=== PATIENT | male | born 1980 | race African-American/Black ===

== ENCOUNTER 2016-06-30 08:15 | Emergency (ER) | payer SELFPAY ==
[2016-06-30 08:26] VITALS: BP 179/101; BMI 32.5
--- NOTE | 2016-06-30 08:42 | DR.GENAD ---
HPI - PCP Primary Care Physician: NFD - Complaint/Symptoms Chief Complaint Doctors Comments: Patient admits coughing up a small amout of mucus with blood. Denies recent illness. Admits smoking six cigarettes per day approximately. Denies recent infection. PMN negative Chief Complaint:: PT STATES " I WOKE THIS AM AND WENT TO COUGH AND I COUGHED UP BLOOD AND I AM HAVING TROUBLE BREATHING AND NO PAIN" Self Treatment fo Chief Complaint: PT APPEARS TO BE IN NO DISTRESS... - Source History Provided: Patient - Mode of Arrival Mode of Arrival: Ambulatory - Timing Onset of Chief Complaint: 06/30/16 PMH - PMH Past Medical History: Yes Past Medical History: Hypertension Past Surgical History: No - Family History History of Family Medical Conditions: Yes Family Medical History: Diabetes Mellitus, Hypertension - Social History Does patient currently use any type of tobacco product: Yes Have you used tobacco products in the last 12 months: Yes Type of Tobacco Use: Cigars How many years tobacco product used: 15 Does any household member use tobacco: No Alcohol Use: None Do you use any recreational Drugs:: No Lives With: Family Lives Where: Home - infectious screening In the last 2 months have you had wt loss of >10#?: NO Have you had fever, night sweats or hemotysis?: No Have you traveled outside the country in the last 6 months?: No Isolation: Standard ROS - Review of Systems Constitutional: No Symptoms Reported Eyes: No Symptoms Reported ENTM: No Symptoms Reported Respiratoy: Dry Cough Cardiovascular: No Symptoms Reported Gastrointestinal/Abdominal: No Symptoms Reported Genitourinary: No Symptoms Reported Neurological: No Symptoms Reported Musculoskeletal: No Symptoms Reported Integumentary: No Symptoms Reported Hematologic/Lymphatic: No Symptoms Reported Endocrine: No Symptoms Reported Psychiatric: No Symptoms Reported All Other Systems: Reviewed and Negative PE - Vital Signs Vitals: Temperature 99.9 F Pulse Rate 96 Respiratory Rate 20 Blood Pressure 179/101 O2 Sat by Pulse Oximetry 96 - General Limitations: No Limitations General Appearance: Alert, In No Apparent Distress - Head Head Exam: Normal Inspection, Atraumatic - Eyes Eye exam: Normal Appearance, PERRL, EOMI - ENT ENT Exam: Normal Exam External Ear Exam: Normal External Inspection TM/Canal Exam: Bilateral Normal Nose Exam: Other (turbinates boggy left with partial occlusion of nostril) Mouth Exam: Normal Inspection Throat Exam: Normal Inspection - Neck Neck Exam: Normal Inspection - Chest Chest Inspection: Normal Inspection - Respiratory Respiratory Exam: Normal Lung Sounds Bilat Respiratory Exam: Bilateral Clear to Auscultation - Cardiovascular Cardiovascular Exam: Regular Rate - Abdominal Exam Abdominal Exam: Normal Inspection Abdominal Tenderness: negative: RUQ, RLQ, LUQ, LLQ, Epigastrium, Suprapubic, Diffuse, Mild, Moderate, Severe, Other - Extremities Extremities Exam: Normal Inspection, Full ROM - Back Back Exam: Normal Inspection - Neurologic Neurological Exam: Alert, Oriented X3, CN II-XII Intact - Psychiatric Psychiatric Exam: Normal Affect, Normal Mood - Skin Skin Exam: Warm, Dry, Intact Course - Reevaluation 1st: Unchanged ROR - XRAY XRAY Interpreted by: Radiologist (Chest: no acute cardioipulmonary disease) - Diagnosis Discharge Problem: Rhinitis, allergic Qualifiers: Allergic rhinitis trigger: pollen Allergic rhinitis seasonality: unspecified seasonality Qualified Code(s): J30.1 - Allergic rhinitis due to pollen - Discharge Plan Condition: Stable - Follow ups/Referrals Follow ups/Referrals: NFD,None [Primary Care Provider] - 3 days - Instructions
--- NOTE | 2016-06-30 09:35 | RAD ---
HISTORY: Spitting up blood. Difficulty breathing Study: Single-view chest, done portably Comparison: No priors Findings: The trachea is midline. The cardiac silhouette is unremarkable. The lungs are clear without focal infiltrate or effusion. The bony thorax is unremarkable. IMPRESSION: 1. No acute cardiopulmonary disease. Reported By:
== END 2016-06-30 09:50 | disposition home or self-care (01) ==
LOC: ER 08:15
DX: J30.1 Allergic rhinitis due to pollen (principal)
CPT/HCPCS: 71010; 99282

== ENCOUNTER 2016-07-31 14:51 | Emergency (ER) | payer SELFPAY ==
[2016-07-31 14:55] VITALS: BMI 31.8
[2016-07-31] MEDS ORDERED: CATAPRES TAB 0.1 MG PO ONE (15:08)
[2016-07-31] MEDS ORDERED: CATAPRES TAB 0.1 MG ONE (15:09)
--- NOTE | 2016-07-31 16:29 | DR.GENAD ---
HPI - PCP Primary Care Physician: NFD - Complaint/Symptoms Chief Complaint:: PT. C/O LEFT LOWER BACK PAIN THAT RADIATES DOWN LEFT LEG. 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 - Source History Provided: Patient - Mode of Arrival Mode of Arrival: Ambulatory - Timing Onset of Chief Complaint: 07/30/16 PMH - PMH Past Medical History: Yes Past Medical History: Hypertension Past Surgical History: No Surgical History: No History - Family History History of Family Medical Conditions: Yes Family Medical History: Diabetes Mellitus, Hypertension - Social History Does patient currently use any type of tobacco product: Yes Have you used tobacco products in the last 12 months: Yes Type of Tobacco Use: Cigarettes Does any household member use tobacco: No Alcohol Use: None Do you use any recreational Drugs:: No Lives With: Spouse Lives Where: Home - infectious screening In the last 2 months have you had wt loss of >10#?: NO Have you had fever, night sweats or hemotysis?: No Have you traveled outside the country in the last 6 months?: No Isolation: Standard ROS - Review of Systems Eyes: No Symptoms Reported ENTM: No Symptoms Reported Respiratoy: No Symptoms Reported Cardiovascular: No Symptoms Reported Gastrointestinal/Abdominal: No Symptoms Reported Genitourinary: No Symptoms Reported Neurological: No Symptoms Reported Musculoskeletal: Leg (decreased left leg raising) Integumentary: No Symptoms Reported Hematologic/Lymphatic: No Symptoms Reported Endocrine: No Symptoms Reported Psychiatric: No Symptoms Reported All Other Systems: Reviewed and Negative PE - Vital Signs Vitals: Temperature 98.4 F Pulse Rate 105 Respiratory Rate 17 Blood Pressure [Left Arm] 175/100 Blood Pressure 198/110 O2 Sat by Pulse Oximetry 97 - General Limitations: No Limitations General Appearance: Alert, In No Apparent Distress - Head Head Exam: Normal Inspection, Atraumatic - Eyes Eye exam: Normal Appearance, PERRL, EOMI - ENT ENT Exam: Normal Exam External Ear Exam: Normal External Inspection TM/Canal Exam: Bilateral Normal Nose Exam: Normal Nose Exam Mouth Exam: Normal Inspection Throat Exam: Normal Inspection - Neck Neck Exam: Normal Inspection, Full ROM - Chest Chest Inspection: Normal Inspection - Respiratory Respiratory Exam: Normal Lung Sounds Bilat Respiratory Exam: Bilateral Clear to Auscultation - Cardiovascular Cardiovascular Exam: Regular Rate, Normal Rhythm - Abdominal Exam Abdominal Exam: Normal Inspection Abdominal Tenderness: negative: RUQ, RLQ, LUQ, LLQ, Epigastrium, Suprapubic, Diffuse, Mild, Moderate, Severe, Other - Extremities Extremities Exam: Other (straight leg raising to 30 degrees left and 60 left) - Back Back Exam: Normal Inspection - Neurologic Neurological Exam: Alert, Oriented X3, CN II-XII Intact - Psychiatric Psychiatric Exam: Normal Affect, Normal Mood - Skin Skin Exam: Warm, Dry, Intact ROR - XRAY XRAY Interpreted by: Radiologist (Lumbar spine: The lumbar spine alignment is normal. The vertebral body heights and intervertebral disc spaces are normally maintained. There is milm facet DJD at L4-5 and L5-S1. The SI joints appear grossly normal.) - Diagnosis Discharge Problem: DJD (degenerative joint disease), lumbosacral - Discharge Plan Condition: Stable - Follow ups/Referrals Follow ups/Referrals: NFD,None [Primary Care Provider] - 3 days - Instructions
--- NOTE | 2016-07-31 17:14 | RAD ---
Lumbar spine, three views Indication: Left-sided back pain with radiation down left lower extremity. Findings: The lumbar spine alignment is normal. The vertebral body heights and intervertebral disc s paces are normally maintained. There is mild facet DJD at L4-5 and L5-S1. The SI joints appear grossly normal. Impression: Mild facet arthropathy of the lower lumbar spine. No evidence of acute lumbar spine injury. Reported By:
[2016-07-31] MEDS ORDERED: TORADOL 60 MG VIAL IM ONE (17:17)
[2016-07-31] MEDS ORDERED: TORADOL 60 MG VIAL ONE (17:19)
[2016-07-31 17:25] VITALS: BP 175/100
== END 2016-07-31 17:50 | disposition home or self-care (01) ==
LOC: ER 14:59
DX: M51.36 Other intervertebral disc degeneration, lumbar region (principal)
CPT/HCPCS: 72100; 96372; 99282; J1885

== ENCOUNTER 2016-11-03 21:27 | Emergency (ER) | payer SELFPAY ==
[2016-11-03 21:45] VITALS: BP 162/117; BMI 33.2
--- NOTE | 2016-11-03 22:07 | DR.GENAD ---
HPI - PCP Primary Care Physician: NFD - Complaint/Symptoms Chief Complaint:: "I have been out of my blood pressure meds for about a month now. I just moved here and have not found a doctor yet. I started hurting in my head bad from it today. I also have a cyst on my butt that has been hurting really bad. It is sometimes even difficult to walk from it." - Source History Provided: Patient - Mode of Arrival Mode of Arrival: Ambulatory - Timing Onset of Chief Complaint: 10/31/16 PMH - PMH Past Medical History: Yes Past Medical History: Hypertension Past Surgical History: No Surgical History: No History - Family History History of Family Medical Conditions: Yes Family Medical History: Diabetes Mellitus, Hypertension - Social History Does patient currently use any type of tobacco product: Yes Have you used tobacco products in the last 12 months: Yes Type of Tobacco Use: Cigarettes Does any household member use tobacco: Yes Alcohol Use: None Do you use any recreational Drugs:: No Lives With: Family Lives Where: Home - infectious screening In the last 2 months have you had wt loss of >10#?: NO Have you had fever, night sweats or hemotysis?: No Have you traveled outside the country in the last 6 months?: No Isolation: Standard ROS - Review of Systems Eyes: No Symptoms Reported ENTM: No Symptoms Reported Respiratoy: No Symptoms Reported Cardiovascular: No Symptoms Reported Gastrointestinal/Abdominal: No Symptoms Reported Genitourinary: No Symptoms Reported Neurological: No Symptoms Reported Musculoskeletal: Other (right mid gluteal tender mass) Integumentary: No Symptoms Reported Hematologic/Lymphatic: No Symptoms Reported Endocrine: No Symptoms Reported Psychiatric: No Symptoms Reported All Other Systems: Reviewed and Negative PE - Vital Signs Vitals: Temperature 98.7 F Pulse Rate 109 Respiratory Rate 18 Blood Pressure [Left Arm] 175/100 Blood Pressure 162/117 O2 Sat by Pulse Oximetry 97 - General Limitations: No Limitations General Appearance: Alert, In No Apparent Distress - Head Head Exam: Normal Inspection, Atraumatic - Eyes Eye exam: Normal Appearance, PERRL, EOMI - ENT ENT Exam: Normal Exam External Ear Exam: Normal External Inspection TM/Canal Exam: Bilateral Normal Nose Exam: Normal Nose Exam Mouth Exam: Normal Inspection Throat Exam: Normal Inspection - Neck Neck Exam: Normal Inspection, Full ROM - Chest Chest Inspection: Symmetric Chest Wall Rise - Respiratory Respiratory Exam: Normal Lung Sounds Bilat Respiratory Exam: Bilateral Clear to Auscultation - Cardiovascular Cardiovascular Exam: Regular Rate, Normal Rhythm - Abdominal Exam Abdominal Exam: Normal Inspection Abdominal Tenderness: negative: RUQ, RLQ, LUQ, LLQ, Epigastrium, Suprapubic, Diffuse, Mild, Moderate, Severe, Other - Extremities Extremities Exam: Normal Inspection - Back Back Exam: Normal Inspection - Neurologic Neurological Exam: Alert, Oriented X3, CN II-XII Intact - Psychiatric Psychiatric Exam: Normal Affect - Skin Skin Exam: Warm, Dry, Intact, Other (furuncle right superior gluteus arnoldo) - Diagnosis Discharge Problem: Furuncle of buttock, Elevated BP without diagnosis of hypertension - Discharge Plan Condition: Stable - Follow ups/Referrals Follow ups/Referrals: NFD,None [Primary Care Provider] - 3 days - Instructions
== END 2016-11-03 22:35 | disposition home or self-care (01) ==
LOC: ER 21:27
DX: R03.0 Elevated blood-pressure reading, without diagnosis of hypertension (principal); L02.32 Furuncle of buttock
CPT/HCPCS: 99281; 99282

== ENCOUNTER 2016-11-05 12:36 | Emergency (ER) | payer SELFPAY ==
[2016-11-05 12:44] VITALS: BP 183/107; BMI 33.2
--- NOTE | 2016-11-05 12:56 | DR.GENAD ---
HPI - PCP Primary Care Physician: NFD - Complaint/Symptoms Chief Complaint:: PT C/O ALLERGIC REACTION TO A NEW SOAP (HE THINKS) THAT HE USED THIS AM. PT STATES HE STARTED USING A NEW SOAP THIS AM AND AFTER THAT HE STARTED ITCHING ALL OVER HIS BODY. PT STATES HE TOOK A BENADRYL AND THE ITCHING HAS SLOWED DOWN, BUT THE HEAD OF HIS PENIS IS SWOLLEN AND WILL NOT GO DOWN. PT STATES IT WAS PERFECTLY FINE THIS AM UNTIL AFTER THIS ISSUE STARTED. - Nurses notes reviewed Nurses Notes Review: Yes - Source History Provided: Patient - Mode of Arrival Mode of Arrival: Ambulatory - Timing Onset of Chief Complaint: 11/05/16 Came on: Gradually - Duration Duration: Constant Duration: Hours - Location Location: generalized - Severity Severity: Moderate - Modifying Factors Worsens:: new soap - Associated Signs and Symptoms Associated Signs and Symptoms: itchy - Other History Other History: started yesterday for furuncle PMH - PMH Past Medical History: Yes Past Medical History: Hypertension Past Surgical History: No Surgical History: No History - Family History History of Family Medical Conditions: Yes Family Medical History: Diabetes Mellitus, Hypertension - Social History Does patient currently use any type of tobacco product: Yes Have you used tobacco products in the last 12 months: Yes Type of Tobacco Use: Cigarettes Does any household member use tobacco: Yes Alcohol Use: None Do you use any recreational Drugs:: No Lives With: Family Lives Where: Home - infectious screening In the last 2 months have you had wt loss of >10#?: NO Have you had fever, night sweats or hemotysis?: No Have you traveled outside the country in the last 6 months?: No Isolation: Standard PE - Vital Signs Vitals: Temperature 98.2 F Pulse Rate 83 Respiratory Rate 20 Blood Pressure [Left Arm] 175/100 Blood Pressure 183/107 O2 Sat by Pulse Oximetry 97 - General Limitations: No Limitations General Appearance: Alert, In No Apparent Distress - Head Head Exam: Normal Inspection - Eyes Eye exam: Normal Appearance, EOMI. negative: Scleral Icterus, Conjunctival Injection - ENT ENT Exam: Normal Exam External Ear Exam: Normal External Inspection Mouth Exam: Normal Inspection Throat Exam: Normal Inspection - Neck Neck Exam: Normal Inspection, Full ROM, Trachea Midline - Chest Chest Inspection: Normal Inspection - Respiratory Respiratory Exam: negative: Accessory Muscle Use, Respiratory Distress - Cardiovascular Cardiovascular Exam: Regular Rate - Abdominal Exam Abdominal Exam: Normal Inspection - Extremities Extremities Exam: Normal Inspection - Neurologic Neurological Exam: Alert, Oriented X3, CN II-XII Intact - Psychiatric Psychiatric Exam: Normal Mood - Skin Skin Exam: Intact, Other (swelling around head of penis) - Diagnosis Discharge Problem: Allergic drug rash due to anti-infective agent - Discharge Plan Condition: Stable Prescriptions: Clindamycin HCl 150 mg PO Q6H #40 cap - Follow ups/Referrals Follow ups/Referrals: NFD,None [Primary Care Provider] - 3 days - Instructions
[2016-11-05] MEDS ORDERED: DECADRON INJ IM ONE (12:57)
[2016-11-05] MEDS ORDERED: BENADRYL CAP/TAB 25 MG PO ONE ×2 (12:57→13:13)
[2016-11-05] MEDS ORDERED: CATAPRES TAB 0.2 MG PO ONE (12:59)
[2016-11-05] MEDS ORDERED: CATAPRES TAB 0.2 MG ONE (13:13)
[2016-11-05] MEDS ORDERED: DECADRON INJ ONE (13:13)
== END 2016-11-05 13:51 | disposition home or self-care (01) ==
LOC: ER 12:52
DX: Z88.3 Allergy status to other anti-infective agents (principal)
CPT/HCPCS: 96372; 99282; J1100

== ENCOUNTER 2016-11-10 17:33 | Emergency (ER) | payer SELFPAY ==
[2016-11-10 17:41] VITALS: BP 159/100; BMI 32.1
--- NOTE | 2016-11-10 18:37 | DR.GENAD ---
HPI - PCP Primary Care Physician: none - Complaint/Symptoms Chief Complaint Doctors Comments: Patient admits that he has not taken his antibiotics since given Rx on 11/05/16. He was to take clindamycin 150mg q6h. Chief Complaint:: pt has folliculitis on his buttom it has got worse since he was seen on 11/03/16 - Source History Provided: Patient - Mode of Arrival Mode of Arrival: Ambulatory - Timing Onset of Chief Complaint: 11/03/16 PMH - PMH Past Medical History: Yes Past Medical History: Hypertension Past Surgical History: No Surgical History: No History - Family History History of Family Medical Conditions: Yes Family Medical History: Diabetes Mellitus, Hypertension - Social History Does patient currently use any type of tobacco product: Yes Have you used tobacco products in the last 12 months: Yes Type of Tobacco Use: Cigarettes How many years tobacco product used: 22 Does any household member use tobacco: No Alcohol Use: None Do you use any recreational Drugs:: No Lives With: Family Lives Where: Home - infectious screening In the last 2 months have you had wt loss of >10#?: NO Have you had fever, night sweats or hemotysis?: No Have you traveled outside the country in the last 6 months?: No Isolation: Standard ROS - Review of Systems Eyes: No Symptoms Reported ENTM: No Symptoms Reported Respiratoy: No Symptoms Reported Cardiovascular: No Symptoms Reported Gastrointestinal/Abdominal: No Symptoms Reported Genitourinary: No Symptoms Reported Neurological: No Symptoms Reported Musculoskeletal: No Symptoms Reported Integumentary: No Symptoms Reported Hematologic/Lymphatic: No Symptoms Reported Endocrine: No Symptoms Reported Psychiatric: No Symptoms Reported All Other Systems: Reviewed and Negative PE - Vital Signs Vitals: Temperature 98 F Pulse Rate 100 Respiratory Rate 20 Blood Pressure [Left Arm] 175/100 Blood Pressure 159/100 O2 Sat by Pulse Oximetry 100 - General General Appearance: Alert, In No Apparent Distress - Head Head Exam: Normal Inspection, Atraumatic - Eyes Eye exam: Normal Appearance, PERRL, EOMI - ENT ENT Exam: Normal Exam External Ear Exam: Normal External Inspection TM/Canal Exam: Bilateral Normal Nose Exam: Normal Nose Exam Mouth Exam: Normal Inspection Throat Exam: Normal Inspection - Neck Neck Exam: Normal Inspection, Full ROM - Chest Chest Inspection: Normal Inspection - Respiratory Respiratory Exam: Normal Lung Sounds Bilat Respiratory Exam: Bilateral Clear to Auscultation - Cardiovascular Cardiovascular Exam: Regular Rate, Normal Rhythm - Abdominal Exam Abdominal Exam: Normal Inspection Abdominal Tenderness: negative: RUQ, RLQ, LUQ, LLQ, Epigastrium, Suprapubic, Diffuse, Mild, Moderate, Severe, Other - Extremities Extremities Exam: Normal Inspection, Full ROM - Back Back Exam: Normal Inspection - Neurologic Neurological Exam: Alert, Oriented X3, CN II-XII Intact - Psychiatric Psychiatric Exam: Normal Affect - Skin Skin Exam: Warm, Dry, Other (right gluteal cheek superiorally a crusting lesion nonerythematous scabbed, states it hurts.) - Diagnosis Discharge Problem: Carbuncle and furuncle of buttock - Discharge Plan Condition: Stable - Follow ups/Referrals Follow ups/Referrals: NFD,None [Primary Care Provider] - 3 days - Instructions
== END 2016-11-10 19:02 | disposition home or self-care (01) ==
LOC: ER 17:33
DX: L02.33 Carbuncle of buttock (principal); L02.32 Furuncle of buttock
CPT/HCPCS: 99281; 99282

== ENCOUNTER 2016-11-13 02:59 | Emergency (ER) | payer SELFPAY ==
[2016-11-13 03:06] VITALS: BP 148/80; BMI 33.2
--- NOTE | 2016-11-13 03:43 | DR.GENAD ---
HPI - PCP Primary Care Physician: NFD - Complaint/Symptoms Chief Complaint Doctors Comments: The carbuncle has ruptured in three sites on right gluteal area. There is still a large firm core palpaed Chief Complaint:: PT STATES" I WAS TOLD TOO COME BACK WHEN IT RUPTURED SO I'M HERE. IT HURTS SO BAD I CAN'T STAND IT" - Source History Provided: Patient - Mode of Arrival Mode of Arrival: Ambulatory - Timing Onset of Chief Complaint: 11/05/16 PMH - PMH Past Medical History: Yes Past Medical History: Hypertension Past Surgical History: No Surgical History: No History - Family History History of Family Medical Conditions: Yes Family Medical History: Diabetes Mellitus, Hypertension - Social History Does any household member use tobacco: Yes Alcohol Use: None Do you use any recreational Drugs:: No Lives With: Family Lives Where: Home - infectious screening In the last 2 months have you had wt loss of >10#?: NO Have you had fever, night sweats or hemotysis?: No Have you traveled outside the country in the last 6 months?: No Isolation: Standard ROS - Review of Systems Eyes: No Symptoms Reported ENTM: No Symptoms Reported Respiratoy: No Symptoms Reported Cardiovascular: No Symptoms Reported Gastrointestinal/Abdominal: No Symptoms Reported Genitourinary: No Symptoms Reported Neurological: No Symptoms Reported Musculoskeletal: Other (carbuncle right glu) Integumentary: No Symptoms Reported Hematologic/Lymphatic: No Symptoms Reported Endocrine: No Symptoms Reported Psychiatric: No Symptoms Reported All Other Systems: Reviewed and Negative PE - Vital Signs Vitals: Temperature 99.1 F Pulse Rate 104 Respiratory Rate 18 Blood Pressure [Left Arm] 175/100 Blood Pressure 148/80 O2 Sat by Pulse Oximetry 98 - General Limitations: No Limitations General Appearance: Alert - Head Head Exam: Normal Inspection, Atraumatic - Eyes Eye exam: Normal Appearance, PERRL - ENT ENT Exam: Normal Exam External Ear Exam: Normal External Inspection TM/Canal Exam: Bilateral Normal Nose Exam: Normal Nose Exam Mouth Exam: Normal Inspection Throat Exam: Normal Inspection - Neck Neck Exam: Normal Inspection, Full ROM - Chest Chest Inspection: Normal Inspection - Respiratory Respiratory Exam: Normal Lung Sounds Bilat Respiratory Exam: Bilateral Clear to Auscultation - Cardiovascular Cardiovascular Exam: Regular Rate, Normal Rhythm - Abdominal Exam Abdominal Exam: Normal Inspection Abdominal Tenderness: negative: RUQ, RLQ, LUQ, LLQ, Epigastrium, Suprapubic, Diffuse, Mild, Moderate, Severe, Other - Extremities Extremities Exam: Normal Inspection, Full ROM - Neurologic Neurological Exam: Alert, Oriented X3, CN II-XII Intact - Psychiatric Psychiatric Exam: Normal Affect, Normal Mood - Skin Skin Exam: Warm, Dry, Intact (the carbuncle has ruptured with large core area still intact. ) - Diagnosis Discharge Problem: Carbuncle and furuncle of buttock - Discharge Plan Condition: Stable - Follow ups/Referrals Follow ups/Referrals: NFD,None [Primary Care Provider] - 3 days - Instructions
== END 2016-11-13 04:03 | disposition home or self-care (01) ==
LOC: ER 02:59
DX: L02.33 Carbuncle of buttock (principal); L02.32 Furuncle of buttock
CPT/HCPCS: 99281

== ENCOUNTER 2017-06-01 09:26 | Emergency (ER) | payer SELFPAY ==
[2017-06-01 09:29] VITALS: BMI 31.1
--- NOTE | 2017-06-01 10:02 | DR.GENAD ---
HPI - PCP Primary Care Physician: NFPablo - Complaint/Symptoms Chief Complaint:: PT. STATES THIS MORNING HE WAS WORKING OUT AND BENCH PRESSING SOME WEIGHTS AND HAD A PAIN TO THE RIGHT SIDE OF HIS FACE WITH PRESSURE BEHIND HIS RIGHT EYE WELL A HEADACHE. PT. STATES AT THAT SAME TIME HIS CHEST BEGAN HURTING. - Source History Provided: Patient - Mode of Arrival Mode of Arrival: Ambulatory - Timing Onset of Chief Complaint: 06/01/17 PMH - PMH Past Medical History: Yes Past Medical History: Hypertension Past Surgical History: No Surgical History: No History - Family History History of Family Medical Conditions: Yes Family Medical History: Diabetes Mellitus, Hypertension - Social History Does patient currently use any type of tobacco product: Yes Have you used tobacco products in the last 12 months: Yes Type of Tobacco Use: None Does any household member use tobacco: No Alcohol Use: None Do you use any recreational Drugs:: No Lives With: Spouse Lives Where: Home - infectious screening In the last 2 months have you had wt loss of >10#?: NO Have you had fever, night sweats or hemotysis?: No Have you traveled outside the country in the last 6 months?: No Isolation: Standard PE - Vital Signs Vitals: Temperature 98.9 F Pulse Rate [Left Radial] 69 Pulse Rate 93 Respiratory Rate 18 Blood Pressure [Left Arm] 140/91 Blood Pressure 179/114 O2 Sat by Pulse Oximetry 100 Course - Reevaluation 1st: Improved - Education/Counseling Educated On: Treatment, Diagnosis, Prognosis, Needs for Follow Up ROR - Labs Reviewed Result Diagrams: 06/01/17 11:00 06/01/17 11:00 Laboratory: WBC 5.2 X10^3/uL (3.6-10.0) 06/01/17 11:00 RBC 4.99 X10^6/uL (4.7-6.0) 06/01/17 11:00 Hgb 14.1 g/dL (13.5-18.0) 06/01/17 11:00 Hct 42.3 % (42.0-54.0) 06/01/17 11:00 MCV 84.8 fL (80.0-100.0) 06/01/17 11:00 MCH 28.2 pg (27.0-34.0) 06/01/17 11:00 MCHC 33.3 g/dL (33.0-35.0) 06/01/17 11:00 RDW 13.6 % (11.6-16.5) 06/01/17 11:00 Plt Count 273 X10^3/uL (150.0-450.0) 06/01/17 11:00 MPV 8.5 fL (7.4-11.0) 06/01/17 11:00 Neut % 53.6 % (42.0-75.0) 06/01/17 11:00 Lymph % 35.3 % (21.0-51.0) 06/01/17 11:00 [place] % 7.6 % (0.0-13.0) 06/01/17 11:00 Eos % 1.9 % (0.9-2.9) 06/01/17 11:00 Baso % 1.6 % (0.2-1.0) H 06/01/17 11:00 Neut # 2.8 x10^3/uL (2.2-4.8) 06/01/17 11:00 Lymph # 1.8 X10^3/uL (1.3-2.9) 06/01/17 11:00 [place] # 0.4 x10^3/uL (0.3-0.8) 06/01/17 11:00 Eos # 0.1 x10^3/uL (0.0-0.2) 06/01/17 11:00 Baso # 0.1 X10^3/uL (0.0-0.1) 06/01/17 11:00 Absolute Nucleated RBC 0.1 /100WBC 06/01/17 11:00 INR Target Range - 06/01/17 11:00 INR 0.98 (0.8-1.3) 06/01/17 11:00 PTT 26.9 SECONDS (22.9-36.5) 06/01/17 11:00 PTT Comment - 06/01/17 11:00 Sodium 142 mmol/L (136-145) 06/01/17 11:00 Corrected Sodium TNP 06/01/17 11:00 Potassium 4.6 mmol/L (3.5-5.1) 06/01/17 11:00 Chloride 105 mmol/L (98-107) 06/01/17 11:00 Carbon Dioxide 30.5 mmol/L (21-32) 06/01/17 11:00 BUN 8 mg/dL (7-18) 06/01/17 11:00 Creatinine 0.83 mg/dL (0.70-1.30) 06/01/17 11:00 Est GFR (MDRD) Af Amer > 60 (>60) 06/01/17 11:00 Est GFR (MDRD) Non-Af > 60 (>60) 06/01/17 11:00 Glucose 97 mg/dL (65-99) 06/01/17 11:00 Calcium 8.6 mg/dL (8.5-10.1) 06/01/17 11:00 Magnesium 1.9 mg/dL (1.7-2.9) 06/01/17 11:00 Creatine Kinase 253 Units/L (39-308) 06/01/17 11:00 CK-MB (CK-2) 1.6 ng/mL (0-4.0) 06/01/17 11:00 CK/CKMB % Calc 0.6 % (<4) 06/01/17 11:00 Troponin I < 0.02 ng/mL (0-1.5) 06/01/17 11:00 Specimen Type Clean catch urine 06/01/17 11:30 Urine Color Yellow (YELLOW) 06/01/17 11:30 Urine Appearance Clear (CLEAR) 06/01/17 11:30 Urine pH 8.0 (5.0 - 8.0) 06/01/17 11:30 Ur Specific [place] 1.010 (1.000-1.030) 06/01/17 11:30 Urine Protein Negative (NEGATIVE) 06/01/17 11:30 Urine Glucose (UA) Negative (NEGATIVE) 06/01/17 11:30 Urine Ketones Negative (NEGATIVE) 06/01/17 11:30 Urine Occult Blood Negative (NEGATIVE) 06/01/17 11:30 Urine Nitrite Negative (NEGATIVE) 06/01/17 11:30 Urine Bilirubin Negative (NEGATIVE) 06/01/17 11:30 Urine Urobilinogen Normal (NORMAL) 06/01/17 11:30 Ur Leukocyte Esterase 1+ (NEGATIVE) 06/01/17 11:30 Urine RBC 0-2 /HPF (NONE SEEN) 06/01/17 11:30 Urine WBC 0-2 /HPF (NONE SEEN) 06/01/17 11:30 Ur Squamous Epith Cells Negative /HPF (NEGATIVE) 06/01/17 11:30 Urine Bacteria Negative /HPF (NEGATIVE) 06/01/17 11:30 Ur Culture Indicated? No/not indicated 06/01/17 11:30 - XRAY XRAY Interpreted by: Radiologist (Ct Sinus w/o: There is mucoperiosteal thickening noted throughout the right maxillary sinus with focal polypoid soft tissue opacification obstructing the infundibulum. There is mucoperiosteal thickening and partial opacification of the ethmoid air cells bilaterally right worse than left. There is soft tissue opacification of the right frontoethmoidal recess and partialo opacification in the right frontal sinus. Mild mucoperiosteal thickening in the left frontal sinus is noted. Mild mucoperiosteal thickening seen in the right spehnoid chamber and to a lesser degree the left sphenoid. The included portions of the tympanic cavities appear grossly clear bilaterally. Impression: Paranasal sinus disease c/w acute sinusitis...There is polypoid soft tissue obstructing the infundibulum of the right maxillary sinus. A follow up with ENT to exclcude mass in this location.) - Diagnosis Discharge Problem: Acute sinusitis Qualifiers: Sinusitis location: pansinusitis - Discharge Plan Condition: Stable Prescriptions: Amoxicillin/Potassium Clav [Augmentin 875-125 Tablet] 1 tab PO Q12H #20 tab - Follow ups/Referrals Follow ups/Referrals: NFD,None [Primary Care Provider] - 3 days - Instructions
[2017-06-01] MEDS ORDERED: CATAPRES TAB 0.1 MG PO ONE (10:32)
[2017-06-01] MEDS ORDERED: CATAPRES TAB 0.1 MG ONE (10:43)
--- NOTE | 2017-06-01 11:10 | CT ---
History: Right facial pressure and headache. Technique: Sinus CT without contrast. Multiple contiguous axial CT images were obtained through the p aranasal sinuses without IV contrast. Sagittal and coronal reformatted images were reconstructed. Comparison:NONE Findings: There is mucoperiosteal thickening noted throughout the right maxillary sinus with focal polypoid sof t tissue opacification obstructing the infundibulum. There is mucoperiosteal thickening and partial o pacification of the ethmoid air cells bilaterally right worse than left. There is soft tissue opacifi cation of the right frontoethmoidal recess and partial opacification in the right frontal sinus. Mild mucoperiosteal thickening in the left frontal sinus is noted. Mild mucoperiosteal thickening seen in the right sphenoid chamber and to a lesser degree the left sphenoid. The included portions of the ty mpanic cavities appear grossly clear bilaterally. Impression: 1. Paranasal sinus disease as discussed above consistent with acute sinusitis in the appropriate clin ical setting. There is polypoid soft tissue obstructing the infundibulum of the right maxillary sinus . A follow-up examination and ENT follow-up suggested to exclude mass in this location. Reported By:
[2017-06-01 11:24] LABS: BASOPHILS # (AUTO) 0.1 X10^3/uL (0.0-0.1); BASOPHILS % (AUTO) 1.6 % (0.2-1.0); EOSINOPHILS # (AUTO) 0.1 x10^3/uL (0.0-0.2); EOSINOPHILS % (AUTO) 1.9 % (0.9-2.9); HEMATOCRIT 42.3 % (42.0-54.0); HEMOGLOBIN 14.1 g/dL (13.5-18.0); LYMPHOCYTES # (AUTO) 1.8 X10^3/uL (1.3-2.9); LYMPHOCYTES % (AUTO) 35.3 % (21.0-51.0); MEAN CORPUSCULAR HEMOGLOBIN 28.2 pg (27.0-34.0); MEAN CORPUSCULAR HGB CONC 33.3 g/dL (33.0-35.0); MEAN CORPUSCULAR VOLUME 84.8 fL (80.0-100.0); MEAN PLATELET VOLUME 8.5 fL (7.4-11.0); MONOCYTES # (AUTO) 0.4 x10^3/uL (0.3-0.8); MONOCYTES % (AUTO) 7.6 % (0.0-13.0); NEUTROPHILS # (AUTO) 2.8 x10^3/uL (2.2-4.8); NEUTROPHILS % (AUTO) 53.6 % (42.0-75.0); PLATELET COUNT 273 X10^3/uL (150.0-450.0); RED BLOOD COUNT 4.99 X10^6/uL (4.7-6.0); RED CELL DISTRIBUTION WIDTH 13.6 % (11.6-16.5); WHITE BLOOD COUNT 5.2 X10^3/uL (3.6-10.0)
[2017-06-01 11:41] LABS: BILIRUBIN,URINE NEGATIVE (NEGATIVE); BLOOD/HEMOGLOBIN,URINE NEGATIVE (NEGATIVE); GLUCOSE, URINE NEGATIVE (NEGATIVE); KETONES,URINE NEGATIVE (NEGATIVE); LEUKOCYTE ESTERASE ,URINE 1+ (NEGATIVE); NITRITES,URINE NEGATIVE (NEGATIVE); PROTEIN,URINE NEGATIVE (NEGATIVE); UROBILINOGEN,URINE NORMAL (NORMAL)
[2017-06-01 11:41] LABS: BLOOD UREA NITROGEN 8 mg/dL (7-18); CALCIUM 8.6 mg/dL (8.5-10.1); CARBON DIOXIDE 30.5 mmol/L (21-32); CHLORIDE 105 mmol/L (98-107); CKMB % 0.6 % (<4); CREATINE KINASE 253 Units/L (39-308); CREATINE KINASE MB 1.6 ng/mL (0-4.0); CREATININE 0.83 mg/dL (0.70-1.30); MAGNESIUM 1.9 mg/dL (1.7-2.9); SODIUM 142 mmol/L (136-145); TROPONIN I < 0.02 ng/mL (0-1.5); eGFR BLACK RACES > 60 (>60); eGFR NON BLACK RACES > 60 (>60)
[2017-06-01 11:42] LABS: APPEARANCE,URINE CLEAR (CLEAR); COLOR,URINE YELLOW (YELLOW)
[2017-06-01 11:48] LABS: BACTERIA,URINE NEGATIVE /HPF (NEGATIVE); RBC,URINE 0-2 /HPF (NONE SEEN); SQUAMOUS EPITHELIAL CELL,UR NEGATIVE /HPF (NEGATIVE)
[2017-06-01 12:31] VITALS: BP 168/95
== END 2017-06-01 12:30 | disposition home or self-care (01) ==
LOC: ER 09:51
DX: J32.4 Chronic pansinusitis (principal); R94.31 Abnormal electrocardiogram [ECG] [EKG]
CPT/HCPCS: 36415; 70486; 80048; 81001; 82550; 82553; 83735; 84484; 85025; 85610; 85730; 93005; 93010; 99282; 99283; 99284